=== PATIENT | female | born 1955 | race Caucasian/White ===

== ENCOUNTER 2024-07-09 10:02 | Outpatient (REF) | payer OTHER, SELFPAY ==
[2024-07-09 10:36] LABS: Blood Urea Nitrogen 9 mg/dL (9-16); Estimated Glomerular Filt Rate > 60
== END 2024-07-09 10:03 | disposition home or self-care (01) ==
LOC: HO.LAB 10:02
PROVIDERS: Visit Provider Otolaryngology
DX: Z01.818 Encounter for other preprocedural examination (principal); R13.10 Dysphagia, unspecified; R49.0 Dysphonia; J38.7 Other diseases of larynx
CPT/HCPCS: 36415; 82565; 84520